=== PATIENT | male | born 1955 | race Asian ===

== ENCOUNTER 2021-07-08 08:54 | Emergency (ER) | payer OTHER ==
[~2021-07-08] VITALS: Ht 175.3 cm; Wt 78.5 kg
[2021-07-08 10:00] VITALS: BP 154/89; TEMP 97.5
== END 2021-07-08 10:00 | disposition home or self-care (01) ==
LOC: ED 08:54
DX: M17.12 Unilateral primary osteoarthritis, left knee (principal); M25.462 Effusion, left knee
CPT/HCPCS: 96372; 99283; J1885; J2930

== ENCOUNTER 2021-09-19 16:01 | Emergency (ER) | payer OTHER ==
[~2021-09-19] VITALS: Ht 185.4 cm; Wt 78.5 kg
[2021-09-19 16:01] VITALS: BP 131/96; TEMP 98.8
[2021-09-19 16:52] LABS: PLATELET COUNT 246 K/uL (142-355)
[2021-09-19 17:03] LABS: POTASSIUM 3.9 mmol/L (3.6-5.2)
== END 2021-09-19 18:20 | disposition home or self-care (01) ==
LOC: ED 16:01
PROVIDERS: Emergency Medicine Emergency Medical Services
DX: M19.012 Primary osteoarthritis, left shoulder (principal); M19.011 Primary osteoarthritis, right shoulder; M17.12 Unilateral primary osteoarthritis, left knee; Z98.890 Other specified postprocedural states
CPT/HCPCS: 80053; 81000; 85027; 96360; 96375; 99284; J1885; J2930

== ENCOUNTER 2021-10-14 09:35 | Outpatient (CLI) | payer OTHER | END 2021-10-14 20:51 | disposition home or self-care (01) | LOC: RAD 09:35 → LABW 09:35 | PROVIDERS: ATTEND Internal Medicine | DX: M25.551 Pain in right hip (principal); M25.552 Pain in left hip; M25.561 Pain in right knee; M25.562 Pain in left knee; M54.51 Vertebrogenic low back pain; M79.641 Pain in right hand; M79.642 Pain in left hand; M06.4 Inflammatory polyarthropathy | CPT/HCPCS: 36415; 82728; 83970; 84550; 86038; 86200; 86430 ==